=== PATIENT | female | born 1955 | race American Indian/Alaskan Native ===

== ENCOUNTER 2016-08-10 15:14 | Outpatient (CLI) | payer OTHER | END 2016-08-10 15:15 | disposition home or self-care (01) | LOC: LABHHL 15:14 | PROVIDERS: ATTEND Internal Medicine Gastroenterology | DX: Z12.11 Encounter for screening for malignant neoplasm of colon (principal) | CPT/HCPCS: 88305 ==

== ENCOUNTER 2017-01-02 18:08 | Emergency (ER) | payer OTHER ==
--- NOTE | 2017-01-03 01:45 | Emergency Department Report ---
ED Eye Problem HPI - General Chief complaint: Eye Problems Stated complaint: LEFT EYE INJURY Time Seen by Provider: 01/03/17 01:41 Source: patient Mode of arrival: Ambulatory Limitations: No Limitations - History of Present Illness Initial comments: Inhaler reports that she accidentally touched her eye with tweezers 4 days ago and she said her left eye is red and bloodshot. She said sometimes she has a throbbing pain to 3 out of 10 to her left eye. She reports redness to her left eye. Denies any decrease in vision. Denies any discharge from eye. Tetanus vaccine is up-to-date. Patient does not wear glasses or contacts. No other symptoms. MD chief complaint: eye pain, eye redness, eye injury Onset/Timin -: days(s) Onset Description: sudden Location: left eye Place: home If Injury: direct trauma Eye Symptoms: redness, pain, foreign body sensation Severity: mild Severity scale (0 -10): 3 If Pain, Quality: throbbing Consistency: intermittent Context: injury Associated Symptoms: none Treatments Prior to Arrival: none - Related Data Patient Tetanus UTD: Yes Previous Rx's Medication Instructions Recorded Last Taken Type Acetaminophen/Codeine [Tylenol 1 tab PO Q6H PRN #12 tab 01/03/17 Unknown Rx /Codeine # 3 tab] Gentamicin 0.3% Ophth Soln 2 drops OS Q8H #1 bottle 01/03/17 Unknown Rx Allergies Allergy/AdvReac Type Severity Reaction Status Date / Time No Known Allergies Allergy Unverified 01/02/17 18:20 ED Review of Systems ROS: Stated complaint: LEFT EYE INJURY Other details as noted in HPI Comment: All other systems reviewed and negative Constitutional: no symptoms reported Eyes: eye pain. denies: eye discharge, vision change Respiratory: no symptoms reported Cardiovascular: denies: chest pain, palpitations, edema, syncope Musculoskeletal: denies: back pain, arthralgia Skin: denies: rash Neurological: denies: headache, weakness, numbness, paresthesias, confusion, abnormal gait, vertigo ED Past Medical Hx - Past Medical History Previous Medical History?: Yes Hx Hypertension: Yes - Surgical History Past Surgical History?: No - Family History Family history: hypertension - Social History Smoking Status: Never Smoker Substance Use Type: None Other Social History: divorce - Medications Home Medications: Home Medications Medication Instructions Recorded Confirmed Last Taken Type Acetaminophen/Codeine [Tylenol 1 tab PO Q6H PRN #12 tab 01/03/17 Unknown Rx /Codeine # 3 tab] Gentamicin 0.3% Ophth Soln 2 drops OS Q8H #1 bottle 01/03/17 Unknown Rx ED Physical Exam - General Limitations: No Limitations General appearance: alert, in no apparent distress - Head Head exam: Present: atraumatic, normocephalic, normal inspection - Eye Eye exam: Present: normal appearance, PERRL, EOMI, other (subconjunctival hemorrhage to other canthus of the left eye). Absent: scleral icterus, nystagmus, periorbital swelling, periorbital tenderness Pupils: Present: normal accommodation - Expanded Eye Exam Expanded Eyelids: Normal Inspection: Right (Bilateral) Pupils: Regular, Round: Bilateral, Reactive: Bilateral Sclera/Conjunctival: Normal Inspection: Right, Hemorrhage: Left Anterior chamber: Normal Inspection: Bilateral Posterior chamber: Normal Inspection: Bilateral Visual acuity (R) = 20/: 20 Visual acuity (L) = 20/: 20 (20/15 both eyes) With correction: No - ENT ENT exam: Present: normal exam, normal orophraynx, mucous membranes moist - Neck Neck exam: Present: normal inspection, full ROM. Absent: tenderness - Respiratory Respiratory exam: Present: normal lung sounds bilaterally. Absent: respiratory distress - Cardiovascular Cardiovascular Exam: Present: regular rate, normal rhythm, normal heart sounds - Extremities Exam Extremities exam: Present: normal inspection, full ROM, normal capillary refill. Absent: tenderness, pedal edema, joint swelling - Back Exam Back exam: Present: normal inspection, full ROM. Absent: tenderness - Neurological Exam Neurological exam: Present: alert, oriented X3, normal gait, reflexes normal. Absent: motor sensory deficit - Psychiatric Psychiatric exam: Present: normal affect, normal mood - Skin Skin exam: Present: warm, dry, intact, normal color. Absent: rash ED Course Vital Signs 01/02/17 18:20 Temperature 98.9 F Pulse Rate 94 H Respiratory 16 Rate Blood Pressure 91/60 O2 Sat by Pulse 99 Oximetry - Reevaluation(s) Reevaluation #1: 01/03/17 02:58 Patient is stable. See procedure note for [place] intestine - Procedure Description Procedures done: Left eye procedure: Patient left eye examined under [place] lamp. 1 drop tetracaine placed the left eye followed by fluorescein staining and left eye examination under Wood's lamp with small corneal abrasion noted to the left eye. Patient tetanus shot is up-to-date. Sterile water used to flush . She tolerated well. ED Medical Decision Making - Medical Decision Making ED Course: And with left eye injury complaining of throbbing pain on and off and redness to left eye. The findings for subconjunctival hemorrhage to the left eye and small corneal abrasion to left eye status post Wood's lamp testing. See details and procedure note for Wood's lamp test. Visual acuity is normal. TD vaccine is up-to-date. Dx and treatment plan explained to patient and patient will be discharged home with pain medication and antibiotic. Discussed with her she will need to follow-up with lockstitch tunnel elastic operator and 2-3 days. Procedure note: See procedure note for left eye examination under Wood's lamp Plan/plan 1. Left Eye injury 2. Left Corneal abrasion 3 Left Subconjunctival hemorrhage 4.Lt Eye Pain Discharged home with prescription for Tylenol 3 and gentamicin ophthalmic eyedrops. Patient to follow-up with lockstitch tunnel elastic operator in 2-3 days Critical care attestation.: If time is entered above; I have spent that time in minutes in the direct care of this critically ill patient, excluding procedure time. ED Disposition Clinical Impression: Subconjunctival hemorrhage of left eye, Left eye pain Corneal abrasion, left Qualifiers: Encounter type: initial encounter Qualified Code(s): S05.02XA - Injury of conjunctiva and corneal abrasion without foreign body, left eye, initial encounter Left eye injury Qualifiers: Encounter type: initial encounter Qualified Code(s): S05.92XA - Unspecified injury of left eye and orbit, initial encounter Disposition: DC-01 TO HOME OR SELFCARE Is pt being admited?: No Does the pt Need Aspirin: No Condition: Stable Instructions: Eye Pain (ED), Subconjunctival Hemorrhage (ED), Corneal Abrasion (ED) Additional Instructions: Instill gentamicin ophthalmic eyedrops in the left eye 3 times a day 7 days F/U with lockstitch tunnel elastic operator as instructed do Not Take Tylenol No. 3 while driving or operating heavy machinery as this medication causes drowsiness Prescriptions: Acetaminophen/Codeine [Tylenol /Codeine # 3 tab] 1 tab PO Q6H PRN #12 tab PRN Reason: Pain Gentamicin 0.3% Ophth Soln 2 drops OS Q8H #1 bottle Referrals: NASEEM SLOAN MD [Staff Physician] - 01/05/17 PRIMARY CARE, [Primary Care Provider] - 2-3 Days Forms: Work/School Release Form(ED)
[2017-01-03] MEDS ORDERED: FUL-GLO OP ONE (01:46)
[2017-01-03] MEDS ORDERED: TETRACAINE 0.5% OS ONE (01:46)
[2017-01-03 02:58] VITALS: BP 108/60
== END 2017-01-03 03:11 | disposition home or self-care (01) ==
LOC: ED 18:08
DX: S05.02XA Injury of conjunctiva and corneal abrasion without foreign body, left eye, initial encounter (principal); H11.32 Conjunctival hemorrhage, left eye; I10 Essential (primary) hypertension; X58.XXXA Exposure to other specified factors, initial encounter; Y93.89 Activity, other specified; Y92.89 Other specified places as the place of occurrence of the external cause; Y99.8 Other external cause status
CPT/HCPCS: 99283

== ENCOUNTER 2018-02-07 13:24 | Outpatient (CLI) | payer OTHER ==
--- NOTE | 2018-02-07 15:06 | Mammography Report ---
BILATERAL DIGITAL SCREENING MAMMOGRAM with CAD: 02/07/18 13:24:00 CLINICAL: Routine screening. COMPARISON:None available. She doesn't remember where she previously had a mammogram. FINDINGS: The breasts are heterogeneously dense, which may obscure small masses. No mass, architectural distortion or suspicious calcifications. IMPRESSION: No mammographic evidence of malignancy. BI-RADS CATEGORY: 1 - - Negative RECOMMENDATION: Routine mammographic screening in one year. COMMENT: Patient follow-up letters are generated by our [employer] application.
== END 2018-02-07 13:25 | disposition home or self-care (01) ==
LOC: MAMMO 13:24
PROVIDERS: ATTEND Internal Medicine
DX: Z12.31 Encounter for screening mammogram for malignant neoplasm of breast (principal); I10 Essential (primary) hypertension
CPT/HCPCS: 77067

== ENCOUNTER 2018-06-18 15:07 | Emergency (ER) | payer OTHER ==
--- NOTE | 2018-06-18 15:18 | Emergency Department Report ---
Blank Doc - Documentation Documentation: This is a 62-year-old female that presents with URI symptoms x3 days. Denies any fever or chills. This initial assessment diagnostic orders/clinical plan/treatment(s) is/are subject to change based on patient's health status, clinical progression and re- assessment by fellow clinical providers in the ED. Further treatment and workup at subsequent clinical providers discretion. Patient/guardians urged not to elope from ED s their condition may be serious if not clinically assessed and managed. Initial orders include: 1-Patient sent to [facility] for further evaluation and treatment 2- CXR
[2018-06-18 15:23] VITALS: BP 162/97
--- NOTE | 2018-06-18 16:31 | XRay Report ---
FINAL REPORT EXAM: XR CHEST ROUTINE 2V HISTORY: cough TECHNIQUE: Two view chest PA and lateral PRIORS: None. FINDINGS: Cardiac and mediastinal contours are unremarkable. No focal pulmonary infiltrate is identified. No pleural fluid collection seen. Pulmonary vasculature is unremarkable. IMPRESSION: Negative two-view chest
--- NOTE | 2018-06-18 19:02 | Emergency Department Report ---
- General Chief Complaint: Upper Respiratory Infection Stated Complaint: COUGHING/EAR/THROAT PAIN Time Seen by Provider: 06/18/18 15:12 Source: patient Mode of arrival: Ambulatory Limitations: No Limitations - History of Present Illness Initial Comments: 62-year-old [place] Citizen female presents to the emergency room for cold symptoms since Monday. Patient complains of nonproductive cough , sore throat, nasal congestion and right ear pain that feels like it is clogged. Patient states that she has a tube in the right ear and feels drainage in it. Patient denies pain while swallowing. Patient denies fever. Patient does admit to sneezing. Patient has a past medical history of hypertension. Patient reports she is undertaken ibuprofen and cough drops. MD Complaint: cough, sore throat, rhinorrhea, nasal congestion -: days(s) (4) Improves With: nothing Worsens With: nothing Associated Symptoms: rhinorrhea, nasal congestion, sore throat, cough, ear pain. denies: fever, chills, myalgias, diaphoresis, headache, chest pain, shortness of breath, abdominal pain, nausea, vomiting, diarrhea, rash, confusion, right sweats, weight loss, epistaxis, hoarseness Treatments Prior to Arrival: none - Related Data Previous Rx's Medication Instructions Recorded Last Taken Type Acetaminophen/Codeine [Tylenol 1 tab PO Q6H PRN #12 tab 01/03/17 Unknown Rx /Codeine # 3 tab] Gentamicin 0.3% Ophth Soln 2 drops OS Q8H #1 bottle 01/03/17 Unknown Rx Allergies Allergy/AdvReac Type Severity Reaction Status Date / Time No Known Allergies Allergy Unverified 01/02/17 18:20 ED Review of Systems ROS: Stated complaint: COUGHING/EAR/THROAT PAIN Other details as noted in HPI Comment: All other systems reviewed and negative Constitutional: denies: chills, fever ENT: ear pain, throat pain, congestion, other (sneezing, rhinorrhea) Respiratory: cough. denies: shortness of breath Cardiovascular: denies: chest pain, palpitations Endocrine: no symptoms reported Gastrointestinal: denies: abdominal pain, nausea, diarrhea Genitourinary: denies: urgency, dysuria, discharge Musculoskeletal: denies: back pain, joint swelling, arthralgia Skin: denies: rash, lesions Neurological: denies: headache, weakness, paresthesias Psychiatric: denies: anxiety, depression ED Past Medical Hx - Past Medical History Hx Hypertension: Yes - Social History Smoking Status: Never Smoker Substance Use Type: None - Medications Home Medications: Home Medications Medication Instructions Recorded Confirmed Last Taken Type Acetaminophen/Codeine [Tylenol 1 tab PO Q6H PRN #12 tab 01/03/17 Unknown Rx /Codeine # 3 tab] Gentamicin 0.3% Ophth Soln 2 drops OS Q8H #1 bottle 01/03/17 Unknown Rx ED Physical Exam - General Limitations: No Limitations General appearance: alert, in no apparent distress - Head Head exam: Present: atraumatic, normocephalic - Eye Eye exam: Present: EOMI - ENT ENT exam: Present: mucous membranes moist - Expanded ENT Exam Expanded TM/Canal exam: Perforation: Right TM, Loss of Landmarks: Right TM (green tube in place drainage) Throat exam: Negative: tonsillar erythema, tonsillomegaly, tonsillar exudate - Neck Neck exam: Present: full ROM. Absent: tenderness, lymphadenopathy - Respiratory Respiratory exam: Present: normal lung sounds bilaterally. Absent: respiratory distress - Cardiovascular Cardiovascular Exam: Present: regular rate, normal rhythm. Absent: systolic murmur, diastolic murmur, rubs, gallop - GI/Abdominal GI/Abdominal exam: Present: soft, normal bowel sounds - Neurological Exam Neurological exam: Present: alert, oriented X3 - Psychiatric Psychiatric exam: Present: normal affect, normal mood ED Course Vital Signs 06/18/18 15:17 Temperature 98.5 F Pulse Rate 84 Respiratory 18 Rate Blood Pressure 162/97 O2 Sat by Pulse 98 Oximetry ED Medical Decision Making - Radiology Data Radiology results: report reviewed Patient: MORENA SIBLEY MR#: [id number] : 1955 Acct:[id number] Age/Sex: 62 / F ADM Date: 06/18/18 Loc: ED Attending Dr: Ordering Physician: MEGAN MONTES NP Date of Service: 06/18/18 Procedure(s): XR chest routine 2V Accession Number(s): [id number] cc: MEGAN MONTES NP Fluoro Time In Minutes: FINAL REPORT EXAM: XR CHEST ROUTINE 2V HISTORY: cough TECHNIQUE: Two view chest PA and lateral PRIORS: None. FINDINGS: Cardiac and mediastinal contours are unremarkable. No focal pulmonary infiltrate is identified. No pleural fluid collection seen. Pulmonary vasculature is unremarkable. IMPRESSION: Negative two-view chest Transcribed By: JUNAID Dictated By: JANELLE MCCARTNEY MD Electronically Authenticated By: JANELLE MCCARTNEY MD Signed Date/Time: 06/18/18 1631 DD/ 163 TD/TT: 06/18/18 1630 - Medical Decision Making Patient has been evaluated by this provider in fast track. Chest x-ray is negative Examination with no significant findings Discharge patient [id number] medication Patient is to follow-up with her primary care provider if her symptoms persist or gets worse. Critical care attestation.: If time is entered above; I have spent that time in minutes in the direct care of this critically ill patient, excluding procedure time. ED Disposition Clinical Impression: Allergic rhinitis Qualifiers: Allergic rhinitis trigger: unspecified Allergic rhinitis seasonality: unspecified Qualified Code(s): J30.9 - Allergic rhinitis, unspecified Disposition: DC- TO HOME OR SELFCARE Is pt being admited?: No Does the pt Need Aspirin: No Condition: Stable Instructions: Allergic Rhinitis (ED) Additional Instructions: Please go to pharmacy and get Claritin or Zyrtec's or Mariely take as prescribed. You can try [id number] Flonase for nasal congestion. Referrals: MAL REYES MD [Primary Care Provider] - 3-5 Days Forms: Work/School Release Form(ED)
== END 2018-06-18 19:25 | disposition home or self-care (01) ==
LOC: ED 15:07
DX: J30.9 Allergic rhinitis, unspecified (principal); I10 Essential (primary) hypertension
CPT/HCPCS: 71046; 99282

== ENCOUNTER 2018-08-15 08:40 | Emergency (ER) | payer OTHER ==
--- NOTE | 2018-08-15 10:15 | Emergency Department Report ---
- General Chief complaint: Skin/Abscess/Foreign Body Stated complaint: R EAR PAIN Time Seen by Provider: 08/15/18 09:57 Source: patient Mode of arrival: Ambulatory Limitations: No Limitations - Related Data Previous Rx's Medication Instructions Recorded Last Taken Type Acetaminophen/Codeine [Tylenol 1 tab PO Q6H PRN #12 tab 01/03/17 Unknown Rx /Codeine # 3 tab] Gentamicin 0.3% Ophth Soln 2 drops OS Q8H #1 bottle 01/03/17 Unknown Rx Pseudoephedrine [Sudafed] 30 mg PO TID #30 tablet 08/15/18 Unknown Rx Allergies Allergy/AdvReac Type Severity Reaction Status Date / Time No Known Allergies Allergy Unverified 01/02/17 18:20 Abscess Boil HPI - [facility] Chief Complaint: Skin/Abscess/Foreign Body Stated Complaint: R EAR PAIN Time Seen by Provider: 08/15/18 09:57 Duration: 3 Days History: No Fever, No Pain, No Purulent Drainage, No Numbness, No Foreign Body, No Previous History, No Insect Bite HPI: 62-year-old female who was sent to the ED A by her primary care physician's today and has a foreign body in her ear. She states she has a history of sinusitis in the side of the palm of his flare up the sinuses. Patient states that she things interviewed QTip Her right ear. Patient does have a history of intensive to from many years ago. Home Medications: Previous Rx's Medication Instructions Recorded Last Taken Type Acetaminophen/Codeine [Tylenol 1 tab PO Q6H PRN #12 tab 01/03/17 Unknown Rx /Codeine # 3 tab] Gentamicin 0.3% Ophth Soln 2 drops OS Q8H #1 bottle 01/03/17 Unknown Rx Pseudoephedrine [Sudafed] 30 mg PO TID #30 tablet 08/15/18 Unknown Rx Allergies/Adverse Reactions: Allergies Allergy/AdvReac Type Severity Reaction Status Date / Time No Known Allergies Allergy Unverified 01/02/17 18:20 ED Review of Systems ROS: Stated complaint: R EAR PAIN Other details as noted in HPI ED Past Medical Hx - Past Medical History Previous Medical History?: Yes Hx Hypertension: Yes - Surgical History Past Surgical History?: No - Social History Smoking Status: Never Smoker Substance Use Type: None - Medications Home Medications: Home Medications Medication Instructions Recorded Confirmed Last Taken Type Acetaminophen/Codeine [Tylenol 1 tab PO Q6H PRN #12 tab 01/03/17 Unknown Rx /Codeine # 3 tab] Gentamicin 0.3% Ophth Soln 2 drops OS Q8H #1 bottle 01/03/17 Unknown Rx Pseudoephedrine [Sudafed] 30 mg PO TID #30 tablet 08/15/18 Unknown Rx ED Physical Exam - General Limitations: No Limitations General appearance: alert, in no apparent distress - Head Head exam: Present: atraumatic, normocephalic - Eye Eye exam: Present: normal appearance - ENT ENT exam: Present: mucous membranes moist - Expanded ENT Exam Expanded TM/Canal exam: Effusion: Right TM Mouth exam: Present: normal external inspection. Absent: drooling, trismus, muffled voice, tongue elevation, laceration Teeth exam: Absent: gingival enlargement Throat exam: Negative: tonsillar exudate - Neck Neck exam: Present: normal inspection, full ROM - Respiratory Respiratory exam: Present: normal lung sounds bilaterally. Absent: respiratory distress - Cardiovascular Cardiovascular Exam: Present: regular rate, normal rhythm. Absent: systolic murmur, diastolic murmur, rubs, gallop - GI/Abdominal GI/Abdominal exam: Present: soft, normal bowel sounds - Extremities Exam Extremities exam: Present: normal inspection - Back Exam Back exam: Present: normal inspection - Neurological Exam Neurological exam: Present: alert, oriented X3 - Psychiatric Psychiatric exam: Present: normal affect, normal mood - Skin Skin exam: Present: warm, dry, intact, normal color. Absent: rash ED Course Vital Signs 08/15/18 08/15/18 08/15/18 08:59 10:41 10:42 Temperature 97.6 F 97.8 F Pulse Rate 85 79 Respiratory 16 18 16 Rate Blood Pressure 151/87 138/87 [Right] O2 Sat by Pulse 98 100 99 Oximetry ED Medical Decision Making - Medical Decision Making 62-year-old female presents with sinusitis. There is a green tube in right ear. Patient just realized pulmonary evaluation that ear tube was indeed green. She did note that when she was at a primary care yesterday she Mentioned that there is a foreign body that is green in her ear. At that time patient states she did not room is or remember that it was her ear tube. I discussed the patient and there is no foreign body in the ear other than her ear too. did discuss with her to follow-up with the ENT doctor for reassessment of her ear tube. There was no drainage in the ears. Critical care attestation.: If time is entered above; I have spent that time in minutes in the direct care of this critically ill patient, excluding procedure time. ED Disposition Clinical Impression: Sinusitis Disposition: - TO HOME OR SELFCARE Is pt being admited?: No Does the pt Need Aspirin: No Condition: Stable Instructions: Sinusitis (ED) Additional Instructions: Make sure to follow up with the ENT as discussed. Take all your medications as you've been prescribed. If you have any worsening symptoms or develop new symptoms please return to ED immediately. Prescriptions: Pseudoephedrine [Sudafed] 30 mg PO TID #30 tablet Referrals: CHANTEL HOLLOWAY MD [Staff Physician] - 3-[address] [facility] [Provider Group] - 3-5 Days Forms: Work/School Release Form(ED) Time of Disposition: 10:20
[2018-08-15 10:44] VITALS: BP 138/87
== END 2018-08-15 10:42 | disposition home or self-care (01) ==
LOC: ED 08:40
DX: J01.90 Acute sinusitis, unspecified (principal); I10 Essential (primary) hypertension; Z79.899 Other long term (current) drug therapy
CPT/HCPCS: 99282

== ENCOUNTER 2019-02-11 10:39 | Outpatient (CLI) | payer OTHER ==
--- NOTE | 2019-02-13 12:37 | Mammography Report ---
DIGITAL SCREENING MAMMOGRAM WITH CAD, 02/11/2019 INDICATION: Routine screening mammography. TECHNIQUE: Digital bilateral 2D mammography was obtained in the craniocaudal and mediolateral obliq ue projections. This examination was interpreted with the benefit of Computer-Aided Detection analysi s. COMPARISON: 02/07/2018 FINDINGS: Breast Density: The breasts are heterogeneously dense, which may obscure small masses. There is no evidence of dominant mass, suspicious calcifications or architectural distortion in eithe r breast. IMPRESSION: No mammographic evidence of malignancy. Follow up recommendation: Routine yearly BI-RADS Category 1: Negative. A "normal" or negative report should not discourage follow up or biopsy of a clinically significant f inding. A written summary of these findings will be mailed to the patient. The patient will be entered into a mammography reporting system which will generate a reminder letter for the patient's next appointmen t at the appropriate interval. The [employer] recommends yearly mammograms starting at age 40 and continuing as l hilaria as a woman is in good health. Breast MRI is recommended for women with an approximate 20-25% or greater lifetime risk of breast cancer, including women with a strong family history of breast or ova abram cancer or who have been treated for Hodgkin's disease. Signer Name: Hilario Lopez MD Signed: 02/13/2019 12:33 PM Workstation Name: [id number]
== END 2019-02-11 10:40 | disposition home or self-care (01) ==
LOC: MAMMO 10:39
PROVIDERS: ATTEND Internal Medicine
DX: Z12.31 Encounter for screening mammogram for malignant neoplasm of breast (principal)
CPT/HCPCS: 77067

== ENCOUNTER 2019-02-17 21:09 | Emergency (ER) | payer OTHER ==
[2019-02-17 21:20] VITALS: BP 146/82
--- NOTE | 2019-02-17 21:23 | Event Note ---
ED Screening Note Date of service: 02/17/19 Time: 21:18 ED Screening Note: This is a 63 y.o. F. that presents to the ER with swelling and pain to left side of neck that started tonight. Denies fever, chills, cough, sore throat, dental pain, congestion. This initial assessment/diagnostic orders/clinical plan/treatment(s) is/are subject to change based on patients health status, clinical progression and re- assessment by fellow clinical providers in the ED. Further treatment and workup at subsequent clinical providers discretion. Patient/guardian urged not to elope from the ED as their condition may be serious if not clinically assessed and managed. Initial orders include: CT of neck with contrast
--- NOTE | 2019-02-17 22:57 | Emergency Department Report ---
ED General Adult HPI - General Chief complaint: Neck Pain/Injury Stated complaint: KNOT ON LEFT SIDE OF NECK Time Seen by Provider: 02/17/19 21:18 Source: patient Mode of arrival: Ambulatory Limitations: No Limitations - History of Present Illness Initial comments: 63yo BF states that she noticed L neck swelling, soreness and tenderness tonight. She states that she also has a sore throat. -: This evening Location: neck Radiation: non-radiation Severity scale (0 -10): 6 Quality: aching Consistency: constant Improves with: none Worsens with: none Associated Symptoms: denies other symptoms - Related Data Previous Rx's Medication Instructions Recorded Last Taken Type Acetaminophen/Codeine [Tylenol 1 tab PO Q6H PRN #12 tab 01/03/17 Unknown Rx /Codeine # 3 tab] Gentamicin 0.3% Ophth Soln 2 drops OS Q8H #1 bottle 01/03/17 Unknown Rx Pseudoephedrine [Sudafed] 30 mg PO TID #30 tablet 08/15/18 Unknown Rx Amoxicillin/K Clav Tab [Augmentin 1 tab PO Q12HR 10 Days #20 tab 02/18/19 Unknown Rx 875 mg] Allergies Allergy/AdvReac Type Severity Reaction Status Date / Time No Known Allergies Allergy Verified 02/17/19 21:13 ED Review of Systems ROS: Stated complaint: KNOT ON LEFT SIDE OF NECK Other details as noted in HPI Constitutional: no symptoms reported Eyes: denies: eye pain, eye discharge, vision change ENT: as per HPI Respiratory: denies: cough, orthopnea, shortness of breath Cardiovascular: denies: chest pain, palpitations, dyspnea on exertion Endocrine: no symptoms reported Gastrointestinal: denies: abdominal pain, nausea Genitourinary: denies: urgency, dysuria Musculoskeletal: denies: back pain, joint swelling, arthralgia Skin: denies: rash, lesions, change in color Neurological: denies: headache, weakness, numbness Psychiatric: denies: anxiety, depression Hematological/Lymphatic: swollen glands. denies: easy bleeding, easy bruising ED Past Medical Hx - Past Medical History Hx Hypertension: Yes Hx CVA: No Hx Heart Attack/AMI: No Hx Congestive Heart Failure: No Hx Diabetes: No Hx Deep Vein Thrombosis: No Hx Pulmonary Embolism: No Hx GERD: No Hx Liver Disease: No Hx Renal Disease: No Hx of Cancer: No Hx Headaches / Migraines: No Hx Seizures: No - Surgical History Past Surgical History?: No - Social History Smoking Status: Never Smoker Substance Use Type: Marijuana - Medications Home Medications: Home Medications Medication Instructions Recorded Confirmed Last Taken Type Acetaminophen/Codeine [Tylenol 1 tab PO Q6H PRN #12 tab 01/03/17 Unknown Rx /Codeine # 3 tab] Gentamicin 0.3% Ophth Soln 2 drops OS Q8H #1 bottle 01/03/17 Unknown Rx Pseudoephedrine [Sudafed] 30 mg PO TID #30 tablet 08/15/18 Unknown Rx Amoxicillin/K Clav Tab [Augmentin 1 tab PO Q12HR 10 Days #20 tab 02/18/19 Unknown Rx 875 mg] ED Physical Exam - General Limitations: No Limitations General appearance: alert, in no apparent distress - Head Head exam: Present: atraumatic, normocephalic, normal inspection - Eye Eye exam: Present: normal appearance, PERRL, EOMI - ENT ENT exam: Present: normal exam, normal orophraynx, mucous membranes moist - Neck Neck exam: Present: tenderness (L side of neck swelling and tenderness), full ROM - Respiratory Respiratory exam: Present: normal lung sounds bilaterally, respiratory distress - Cardiovascular Cardiovascular Exam: Present: regular rate, normal rhythm, normal heart sounds - GI/Abdominal GI/Abdominal exam: Present: soft. Absent: distended, tenderness - Rectal Rectal exam: Present: deferred - Extremities Exam Extremities exam: Present: normal inspection, full ROM - Back Exam Back exam: Present: normal inspection, full ROM, tenderness - Neurological Exam Neurological exam: Present: alert, altered, CN II-XII intact - Psychiatric Psychiatric exam: Present: normal affect, normal mood - Skin Skin exam: Present: warm, dry, intact ED Course Vital Signs 02/17/19 21:18 Temperature 98.3 F Pulse Rate 82 Respiratory 18 Rate Blood Pressure 146/82 O2 Sat by Pulse 97 Oximetry ED Medical Decision Making - Radiology Data Radiology results: report reviewed Patient: MORENA SIBLEY MR#: [id number] : 1955 Acct:[id number] Age/Sex: 63 / F ADM Date: 02/17/19 Loc: ED Attending Dr: Ordering Physician: LEAH CARTER Date of Service: 02/17/19 Procedure(s): CT neck w con Accession Number(s): [id number] cc: LEAH CARTER CT neck w con INDICATION / CLINICAL INFORMATION: 63 years Female; left sided swelling. TECHNIQUE: Contiguous thin cut axial images obtained through the neck following IV contrast. Sagittal and coronal reconstructions performed by the technologist. All CT scans at this location are performed using CT dose reduction for ALARA by means of automated exposure control. COMPARISON: None available. FINDINGS: There is mild enlargement and enhancement of the left submandibular gland, when compared with the right. Surrounding cellulitic process identified, with associated thickening of the platysma muscle noted as well. Presumed reactive lymph nodes are seen in the left level 2 and 3 regions. MUCOSAL SPACE: The nasopharynx, oropharynx and vallecula, oral cavity and floor of mouth, hypopharynx, and larynx are grossly normal. LYMPH NODES: No significant adenopathy appreciated. SALIVARY GLANDS: Parotid and visualized sublingual glands are within normal limits. Right parotid gland is unremarkable. No evidence of dilated submandibular ducts. No signs of sialolith appreciated. THYROID GLAND: Very small cysts/nodules seen in the right thyroid lobe-of no clinical significance. PARANASAL SINUSES: There is partial opacification of the mastoid air cells bilaterally. SPINE: Mild disc space narrowing seen at C5-6 and C6-7. Mild to moderate osseous foraminal narrowing seen at these levels from uncinate hypertrophy. There is mild disc disease at various levels with no dominant herniation appreciated. No significant canal stenosis identified. VASCULAR STRUCTURES: Vascular structures are grossly normal in appearance. Surrounding soft tissues are otherwise grossly normal. IMPRESSION: 1. Left submandibular sialadenitis seen. Signer Name: Lucas Melo MD, III Signed: 02/17/2019 11:32 PM Workstation Name: [id number] Transcribed By: Dictated By: Lucas Melo MD Electronically Authenticated By: Lucas Melo MD Signed Date/Time: 02/17/192331 DD/ 26 TD/TT: - Medical Decision Making 3yo BF states that she noticed L neck swelling, soreness and tenderness tonight. She states that she also has a sore throat. CT scan results listed in chart. Pt informed that she has swelling of the submandibular gland and antibiotics will be given for treatment, continue Tylenol for pain, and a referral for ENT will be given. Pt verbalized understanding and agreed with the plan of care. Critical care attestation.: If time is entered above; I have spent that time in minutes in the direct care of this critically ill patient, excluding procedure time. ED Disposition Clinical Impression: Sialadenitis Disposition: TO HOME OR SELFCARE Is pt being admited?: No Does the pt Need Aspirin: No Condition: Stable Instructions: Sialoadenitis (ED) Additional Instructions: Pt informed that she has swelling of the submandibular gland and antibiotics will be given for treatment, continue Tylenol for pain, and a referral for ENT will be given. Prescriptions: Amoxicillin/K Clav Tab [Augmentin 875 mg] 1 tab PO Q12HR 10 Days #20 tab Referrals: MAL REYES MD [Primary Care Provider] - 3-5 Days CRISTINA SANTANA MD [Staff Physician] - 3-5 Days Time of Disposition: :02
--- NOTE | 2019-02-17 23:37 | Cat Scan Report ---
CT neck w con INDICATION / CLINICAL INFORMATION: 63 years Female; left sided swelling. TECHNIQUE: Contiguous thin cut axial images obtained through the neck following IV contrast. Sagittal and schwab l reconstructions performed by the technologist. All CT scans at this location are performed using CT dose reduction for ALARA by means of automated exposure control. COMPARISON: None available. FINDINGS: There is mild enlargement and enhancement of the left submandibular gland, when compared wi th the right. Surrounding cellulitic process identified, with associated thickening of the platysma m uscle noted as well. Presumed reactive lymph nodes are seen in the left level 2 and 3 regions. MUCOSAL SPACE: The nasopharynx, oropharynx and vallecula, oral cavity and floor of mouth, hypopharynx , and larynx are grossly normal. LYMPH NODES: No significant adenopathy appreciated. SALIVARY GLANDS: Parotid and visualized sublingual glands are within normal limits. Right parotid gla nd is unremarkable. No evidence of dilated submandibular ducts. No signs of sialolith appreciated. THYROID GLAND: Very small cysts/nodules seen in the right thyroid lobe-of no clinical significance. PARANASAL SINUSES: There is partial opacification of the mastoid air cells bilaterally. SPINE: Mild disc space narrowing seen at C5-6 and C6-7. Mild to moderate osseous foraminal narrowing seen at these levels from uncinate hypertrophy. There is mild disc disease at various levels with no dominant herniation appreciated. No significant canal stenosis identified. VASCULAR STRUCTURES: Vascular structures are grossly normal in appearance. Surrounding soft tissues are otherwise grossly normal. IMPRESSION: 1. Left submandibular sialadenitis seen. Signer Name: Lucas Melo MD, III Signed: 02/17/2019 11:32 PM Workstation Name: [id number]
== END 2019-02-18 01:12 | disposition home or self-care (01) ==
LOC: ED 21:09
DX: K11.20 Sialoadenitis, unspecified (principal); R22.1 Localized swelling, mass and lump, neck; I10 Essential (primary) hypertension; F17.200 Nicotine dependence, unspecified, uncomplicated; Z79.899 Other long term (current) drug therapy
CPT/HCPCS: 70491; 99283; Q9967